=== PATIENT | female | born 1950 | race Caucasian/White ===

== ENCOUNTER 2018-05-03 14:29 | Day surgery (SDC) | payer BC, OTHER ==
[~2018-05-03] VITALS: Ht 165.1 cm; Wt 81.0 kg
[~2018-05-03 14:29] MED LIST: ZOLOFT; [UNRECOGNIZED DRUG - OTHER]
[2018-05-03 15:18] VITALS: Ht 165.1 cm; Wt 81.0 kg
[2018-05-03] MEDS ORDERED: VIT D3 (15:22)
[2018-05-03] MEDS ORDERED: CA+ (15:22)
[2018-05-03] MEDS ORDERED: ATORVASTATIN (15:22)
[2018-05-03] MEDS ORDERED: NAPROXEN (15:22)
[2018-05-03 15:47] VITALS: BP 118/59; PULSE 66; RESP 16
--- NOTE | 2018-05-03 16:05 | PREAC ---
Date/Time of Note Date/Time of Note DATE: 05/03/18 TIME: 16:04 Anesthesia Eval and Record Evaluation Time Pre-Procedure Interview DATE: 05/03/18 TIME: 16:04 Age 67 Sex female NPO: 8 hrs Preoperative diagnosis Positive FIT test Planned procedure Colonoscopy Past Medical History Past Medical History: Includes Cardio: Dyslipidemia Musculoskeletal: Osteoarthritis Surgery & Anesthesia Issues No known issue Meds Anticoagulation: No Beta Gil within 24 hr: No Reason Beta Gil not given: Pt. not on B-Gil Reported Medications [Ca+] No Conflict Check 05/03/18 [Naproxen] No Conflict Check 05/03/18 [Vit D3] No Conflict Check 05/03/18 [Atorvastatin] No Conflict Check 05/03/18 [Zoloft] No Conflict Check 05/06/11 Discontinued Reported Medications [Antiobiotics] No Conflict Check 05/06/11 Meds reviewed: Yes Allergies Coded Allergies: No Known Drug Allergies (Verified Allergy, Unknown, 05/03/18) Allergies Reviewed: Yes Labs/Studies Labs Reviewed: Reviewed by anesthesiologist test: N/A Studies: ECG (n/a), CXR (n/a) Pre-procedure Exam Last vitals Vital Signs Date Temp Pulse Resp B/P (MAP) Pulse Ox O2 O2 Flow FiO2 Time Delivery Rate 05/03/18 98.2 66 16 118/59 100 Room Air 15:47 (78) Airway: Adequate mouth opening, Adequate thyromental dist Mallampati: Mallampati II Teeth: Normal Lung: Normal Heart: Normal ASA Physical Status ASA physical status: 2 Emergency: None Planned Anesthetic General/MAC: MAC Planned Pain Management Parenteral pain med Pre-operative Attestations Prior to commencing anesthesia and surgery, the patient was re-evaluated, there was verification of: *The patient's identity *The results of appropriate recent lab work and preoperative vital signs *The above evaluation not changing prior to induction *Anesthetic plan, risk benefits, alternative and complications discussed with patient/family; questions answered; patient/family understands, accepts and wishes to proceed. JOHNNY HENDRICKSON MD May 03, 2018 16:05
--- NOTE | 2018-05-03 16:27 | PAC ---
Date/Time of Note Date/Time of Note DATE: 05/03/18 TIME: 16:24 Post-Anesthesia Notes Post-Anesthesia Note Last documented vital signs Vital Signs Date Temp Pulse Resp B/P (MAP) Pulse Ox O2 O2 Flow FiO2 Time Delivery Rate 05/03/18 98.2 66 16 118/59 100 Room Air 16:27 (78) Activity: WNL Respiratory function: WNL Cardiovascular function: WNL Mental status: Baseline Pain reasonably controlled: Yes Hydration appropriate: Yes Nausea/Vomiting absent: Yes JOHNNY HENDRICKSON MD May 03, 2018 16:27
--- NOTE | 2018-05-03 16:39 | HPN ---
Date/Time of Note Date/Time of Note DATE: 05/03/18 TIME: 16:39 Interval H&P Admission Note Pt. seen H&P reviewed: No system changes [place] SIMENTAL May 03, 2018 16:39
[2018-05-03 17:12] VITALS: BP 130/61; RESP 20
== END 2018-05-03 17:47 | disposition home or self-care (01) ==
LOC: GIL 14:29
PROVIDERS: ATTEND Internal Medicine Gastroenterology
DX: D12.3 Benign neoplasm of transverse colon (principal); E78.5 Hyperlipidemia, unspecified
CPT/HCPCS: 45380; 88305; Z7610